=== PATIENT | male | born 1955 | race Caucasian/White ===

== ENCOUNTER → 2019-04-08 09:57 | Outpatient (CLI) | payer MEDICARE, BC ==
--- NOTE | 2019-04-09 11:10 | EC ---
PATIENT:MARIJA RIVERA DATE OF SERVICE: 04/08/19 SEX: M MEDICAL RECORD: [id number] DATE OF : [birth year] LOCATION:[facility] AGE OF PATIENT: 63 ADMISSION DATE: 04/08/19 REFERRING PHYSICIAN: INTERPRETING PHYSICIAN: ROSEANNA BORRERO MD ECHOCARDIOGRAM REPORT ECHO CHARGES 4 ECHO COMPLETE Date: 04/08/19 CLINICAL DIAGNOSIS: HTN/DYSPNEA/FAMILY HX OF CAD ECHOCARDIOGRAPHIC MEASUREMENTS (adult normal given) AC root (d.<3.7cm) 2.7 cm LV Septum d (<1.2 cm> 1.0 cm Valve Excursion 1.5 cm LV Septum (systole) 1.2 cm Left Atria (s.<4.0cm> 3.5 cm LVPW d(<1.2cm) 1.3 cm RV (d.<2.3cm) 3.4 cm LVPW (sytole) 1.7 cm LV diastole(<5.6CM) 4.2 cm MV E-F(>70mm/sec) cm LV systole 2.7 cm LVOT Diameter 1.8 cm MV exc.(>10mm) 1.4 cm Est.ejection fraction (50-75%) % DOPPLER: LVIT cm/sec A 78.0 cm/sec E 65.0 cm/sec LA cm/sec RVSP 24 mmHg LVOT 165 cm/sec AOP1/2T m/s Asc. Ao 206 cm/sec RVOT 68 cm/sec RA cm/sec PA 110 cm/sec AV Gradient Peak 16.93mmHg AV Mean 9.04 mmHg AV Area 2.4 cm MV Gradient Peak 4.61 mmHg MV Mean 1.75 mmHg MV Area cm COMMENTS: Double Ending Machine Operator: 2 ANURADHA VILLATORO Sports Teacher: 1 Dr. Borrero TAPE# PACS Pericardial Effusion N DATE OF SERVICE: Echocardiogram FINDINGS: 1. Left ventricular chamber size is within normal limits. Left ventricular systolic function is normal. Overall ejection fraction estimated at 60%. 2. Left atrium is within normal limits at 3.5 cm. Right atrium and right ventricular chamber sizes are as well within normal limits. 3. Valvular structures have normal structure and motion. ECHOCARDIOGRAM REPORT [id number] MARIJA RIVERA 4. Doppler interrogation reveals mild aortic insufficiency, mild mitral regurgitation, mild tricuspid regurgitation, no other valvular insufficiency or stenosis. Pulmonary systolic pressure is estimated at 24 mmHg. 5. No evidence of pericardial effusion or left ventricular thrombus. TRANSINT:[id number] Voice Confirmation ID: [id number] DOCUMENT ID: [id number] ROSEANNA BORRERO MD at 1110 CC: [id number] DICTATION DATE: 04/08/19 1636 OVERNIGHT BABYSITTER: 04/08/192101 DEP CLI 04/08/19 [id number] [place] [address]
--- NOTE | 2019-04-12 10:47 | ST ---
PATIENT:MARIJA RIVERA MEDICAL RECORD: [id number] SEX: M LOCATION:[facility] ORDER #: ADMISSION DATE: 04/08/19 AGE OF PATIENT: 63 REFERRING PHYSICIAN: INTERPRETING PHYSICIAN: ROSEANNA LARSNO MD DATE OF SERVICE: 04/08/2019 PROCEDURE: Nuclear stress test. INDICATIONS: Angina, shortness of breath, hypertension, and hyperlipidemia. He was exercised on standard Lexiscan protocol with 33 mCi of sestamibi injected at peak stress, 11 mCi used previously for rest images. FINDINGS: Gated SPECT reveals preserved ejection fraction at 71% with good wall motion and thickening and brightening throughout all segments. SPECT imaging Cardiolite was used as myocardial fusion agent. There is homogeneous uptake throughout all segments at rest and stress with no evidence of inducible ischemia or previous infarction. OVERALL IMPRESSION: 1. This is a normal nuclear stress test with no evidence of inducible ischemia or previous infarction. 2. Gated SPECT reveals a preserved ejection fraction at 71%. In this patient with ongoing symptomatology, the current scan does not suggest the presence of hemodynamically significant coronary artery disease. Evaluate noncardiac etiology of chest pain. TRANSINT:[id number] Voice Confirmation ID: [id number] DOCUMENT ID: [id number] ROSEANNA LARSON MD at 1047 CC: HEMA ROGERS MD [id number] DICTATION DATE: 04/09/19 1201 VELVET CUTTER: 04/10/19 0017 DEP CLI 04/08/19 [id number] [place] [address]
== END | disposition home or self-care (01) ==
LOC: D.HCCARDIO 09:57
PROVIDERS: ATTEND Internal Medicine Interventional Cardiology
DX: I10 Essential (primary) hypertension (principal)